=== PATIENT | female | born 1975 | race Caucasian/White ===

== ENCOUNTER 2019-03-10 19:40 | Emergency (ER) | payer OTHER ==
[~2019-03-10] VITALS: Ht 162.6 cm; Wt 62.6 kg
[2019-03-10 19:43] VITALS: BP 155/95; PULSE 114; RESP 16; Ht 162.6 cm; Wt 62.6 kg
[2019-03-10] MEDS ORDERED: ONDANSETRON (ODT) 4 MG TAB ODT STA (20:13)
[2019-03-10] MEDS ORDERED: LIDOCAINE 1% (MPF) 5 ML VIAL INJ ONE (20:30)
[2019-03-10] MEDS ORDERED: HYDROCODONE/APAP (5/325) TAB PO ONE (20:30)
[2019-03-10] MEDS ORDERED: DIPHTH/TET/ACEL PERTUSS (ADULT) 0.5 ML VIAL IM* ONE (20:30)
[2019-03-10] MEDS ORDERED: AMOX1TAB10 PO (20:56)
[2019-03-10] MEDS ORDERED: NAPR-985 PO (20:56)
--- NOTE | 2019-03-10 21:38 | ERD ---
ER Documentation Chief Complaint Chief Complaint L leg bite from pts dogs HPI 43-year-old female presenting with dog bite to her left leg. Patient was bit by her own dog. She was trying to break up a fight. Patient does not recall her last Tdap. Denies any numbness or tingling. Medical history of psoriasis. NK DA. Surgical history denies. Social history denies ROS All systems reviewed and are negative except as per history of present illness. Medications Home Meds Active Scripts Naproxen* (Naprosyn*) 500 Mg Tablet, 500 MG PO BID PRN for PAIN AND/OR INFLAMMATION, #30 TAB Prov:RENE NIÑO PA-C 03/10/19 Amoxicillin/Potassium Clav (Amox-Clav 875-125 mg Tablet) 875-125 mg Tab, 1 TAB PO BID for 7 Days, #14 TAB Prov:RENE NIÑO PA-C 03/10/19 Allergies Allergies: Coded Allergies: No Known Allergy (Unverified , 03/10/19) PMhx/Soc Medical and Surgical Hx: pt denies Medical Hx, pt denies Surgical Hx Hx Alcohol Use: No Hx Substance Use: No Hx Tobacco Use: No Smoking Status: Never smoker FmHx Family History: No diabetes, No coronary disease, No other Physical Exam Vitals Vital Signs Date Temp Pulse Resp B/P (MAP) Pulse Ox O2 O2 Flow FiO2 Time Delivery Rate 03/10/19 98.1 114 16 155/95 98 19:43 (115) Physical Exam GENERAL: The patient is well-appearing, well-nourished, in no acute distress CHEST: Clear to auscultation bilaterally. There are no rales, wheezes or rhonchi. HEART: Regular rate and rhythm. No murmurs, clicks, rubs or gallops. EXTREMITIES: Equal pulses bilaterally. There is no peripheral clubbing, cyanosis or edema. No focal swelling or erythema. Full range of motion. Grossly neurovascularly intact. NEUROLOGIC: Alert and oriented. Cranial nerves II through XII intact. Motor strength in all 4 extremities with 5 out of 5 strength. Sensation grossly intact. Normal speech and gait. SKIN: 3 cm laceration noted to the left thigh. No active bleeding or foreign body. Results 24 hrs Current Medications Medications Dose Sig/Daphnie Start Time Status Last (Trade) Ordered Route PRN Stop Time Admin Dose Reason Admin Diphtheria/ 0.5 ml ONCE ONCE 03/10/19 DC 03/10/19 Tetanus/Acell IM* 20:30 21:07 Pertussis 03/10/19 20:31 (Adacel) Lidocaine 5 ml ONCE ONCE 03/10/19 DC (Xylocaine INJ 20:30 1% (Mpf)) 03/10/19 20:31 1 tab ONCE ONCE 03/10/19 DC Acetaminophen PO 20:30 / 03/10/19 20:31 Hydrocodone Bitart ([place] (5/325)) Ondansetron 4 mg ONCE STAT 03/10/19 DC HCl (Zofran ODT 20:13 Odt) 03/10/19 20:14 Procedures/MDM Laceration Repair by me: Anesthesia: 1% lidocaine locally Location: left thigh Tendon/Joint/Nerves: No injury Foreign body: None detected after copious irrigation and exploration Technique: 4 4.0 N Simple Interrupted Sutures Complexity: No subcutaneous sutures/mucosal repair/edge excision Post Closure Length: 3 cm Patient's bleeding was easily controlled in the department and there is no indication of anemia. No evidence of compartment syndrome, neurologic injury, vascular injury, open joint, tendon laceration, or foreign body. Patient is appropriate for outpatient follow up. 48 hour wound check. Scar minimization instructions given. ER course: Steri-Strips applied to wound. Bigg wrap applied. MDM: 43-year-old female presenting with laceration to her left thigh. Patient was discharged with antibiotics given this was a dog bite. I did suture the wound given it was very large and gaping however the sutures were placed very loosely. I told patient that there is high risk of infection which is the reason for not complete closure. There is strips were applied. I have low suspicion for retained foreign body. I have low suspicion for tendon or ligament injury. I have low suspicion for bone involvement. Patient is discharged with strict ER precautions and told to follow-up with primary care within 1 to 2 days for close evaluation. Patient is told symptoms change or worsen to return immediately to ER. All questions answered at discharge Departure Diagnosis: Primary Impression: Bite by animal Condition: Stable Patient Instructions: Dog Bite Referrals: [facility] YOU HAVE RECEIVED A MEDICAL SCREENING EXAM AND THE RESULTS INDICATE THAT YOU DO NOT HAVE A CONDITION THAT REQUIRES URGENT TREATMENT IN THE EMERGENCY DEPARTMENT. FURTHER EVALUATION AND TREATMENT OF YOUR CONDITION CAN WAIT UNTIL YOU ARE SEEN I N YOUR DOCTORS OFFICE WITHIN THE NEXT 1-2 DAYS. IT IS YOUR RESPONSIBILITY TO MAKE AN APPOINTMENT FOR FOLOW-UP CARE. IF YOU HAVE A PRIMARY DOCTOR --you should call your primary doctor and schedule an appointment IF YOU DO NOT HAVE A PRIMARY DOCTOR YOU CAN CALL OUR PHYSICIAN REFERRAL HOTLINE AT IF YOU CAN NOT AFFORD TO SEE A PHYSICIAN YOU CAN CHOSE FROM THE FOLLOWING [facility] CL[facility]ICS [facility] [address] [facility] [address] [facility] [address] [facility] [address] [facility] [address] [facility] [facility]. [address] Additional Instructions: FOLLOW UP WITH YOUR PRIMARY CARE PHYSICIAN TOMORROW.Return to this facility if you are not improving as expected. RENE NIÑO PA-C Mar 10, 2019 21:38
== END 2019-03-10 21:15 | disposition home or self-care (01) ==
LOC: FTE 19:40
DX: S71.112A Laceration without foreign body, left thigh, initial encounter (principal); W54.0XXA Bitten by dog, initial encounter; Y92.9 Unspecified place or not applicable; Z23 Encounter for immunization
CPT/HCPCS: 90471; 90715